=== PATIENT | male | born 1955 | race Two or more races ===

== ENCOUNTER 2022-07-23 12:45 | Emergency (ER) | payer OTHER ==
[2022-07-23 13:04] VITALS: BMI 25.0
[2022-07-23] MEDS ORDERED: PIPERACILLIN/TAZOB 2.25 GM 2.25 GM in DEXTROSE 5%-WATER - 50 ML IVPB ONE (14:23)
[2022-07-23 14:51] LABS: BASO % 0.6 % (0-2.0); EOS % 3.1 % (0-4.5); LYMPH % 33.8 % (8-40); MCH 34.1 pg (25.7-33.7); MCHC 32.3 g/dl (32.0-35.9); MEAN CELL VOLUME 105.5 fl (80-96); MEAN PLT VOLUME 13.1 fl (7.5-11.1); NEUT % 55.5 % (42.8-82.8); PLATELET COUNT 91 10^3/uL (134-434); RBC 3.22 M/mm3 (4.00-5.60); RDW 17.5 % (11.9-15.9); WHITE BLOOD COUNT 5.5 K/mm3 (4.0-10.0)
[2022-07-23 15:04] LABS: CHLORIDE 101 mmol/L (98-107); SODIUM 135 mmol/L (136-145)
[2022-07-23 15:06] LABS: ALBUMIN 2.9 g/dl (3.4-5.0); BLOOD UREA NITROGEN 56.2 mg/dL (7-18); CALCIUM 8.1 mg/dL (8.5-10.1); CO2 27 mmol/L (21-32)
[2022-07-23 15:09] LABS: CREATININE 6.4 mg/dL (0.55-1.3); SGPT/ALT 70 U/L (13-61)
[2022-07-23 15:10] LABS: SGOT/AST 118 U/L (15-37)
[2022-07-23 15:11] LABS: BILIRUBIN,TOTAL 0.5 mg/dL (0.2-1); TOT PROT 7.8 g/dl (6.4-8.2)
[2022-07-23 15:12] LABS: ALK PHOS 649 U/L (45-117); ANISOCYTOSIS 1+; MACROCYTOSIS 1+
[2022-07-23 15:24] LABS: ANION GAP 8 MMOL/L (8-16); GLUCOSE,RANDOM 299 mg/dL (74-106)
[2022-07-23] MEDS ORDERED: PIPERACILLIN/TAZOB 2.25 GM 2.25 GM/50 ML BAG IVPB ONE (15:52)
[2022-07-23] MEDS ORDERED: SODIUM ZIRCONIUM CYCLOSILICATE (LOKELMA) 5 GM PACKET PO SCH (16:15)
[2022-07-23 17:58] VITALS: BP 158/78
[2022-07-23 18:19] LABS: CALCIUM 8.3 mg/dL (8.5-10.1)
[2022-07-23 18:20] LABS: BLOOD UREA NITROGEN 61.5 mg/dL (7-18)
[2022-07-23] MEDS ORDERED: SODIUM ZIRCONIUM CYCLOSILICATE (LOKELMA) 5 GM PACKET ONE (18:22)
[2022-07-23 18:23] LABS: CREATININE 6.4 mg/dL (0.55-1.3)
[2022-07-23] MEDS ORDERED: ACETAMINOPHEN 325 MG TABLET (FP) PO ONE (20:17)
[2022-07-23] MEDS ORDERED: ACETAMINOPHEN 325 MG TABLET (FP) ONE (20:17)
[2022-07-24 00:50] VITALS: PULSE 69; RESP 18; TEMP 98.8
== END 2022-07-24 00:50 | disposition short-term general hospital (02) ==
LOC: JER 12:45 → EDSEX 12:45 → JER 07-24 00:50
DX: H60.22 Malignant otitis externa, left ear (principal); R73.9 Hyperglycemia, unspecified
CPT/HCPCS: 36415; 70450-TC; 76937; 80048; 80053; 85025; 85651; 86140; 87040; 93005; 93010; 99285-25; C9803-CS; U0003; U0005

== ENCOUNTER 2022-08-06 20:20 | Observation (INO) | payer OTHER ==
[2022-08-06 20:30] VITALS: BMI 21.6
[2022-08-06 23:32] LABS: BASO % 0.1 % (0-2.0); EOS % 0.1 % (0-4.5); HEMATOCRIT 36.2 % (35.4-49); HEMOGLOBIN 11.8 GM/dL (11.7-16.9); LYMPH % 6.5 % (8-40); MCH 34.4 pg (25.7-33.7); MCHC 32.5 g/dl (32.0-35.9); MEAN CELL VOLUME 105.6 fl (80-96); MEAN PLT VOLUME 12.4 fl (7.5-11.1); MONO % 0.9 % (3.8-10.2); NEUT % 92.4 % (42.8-82.8); PLATELET COUNT 90 10^3/uL (134-434); RBC 3.42 M/mm3 (4.00-5.60); RDW 16.7 % (11.9-15.9); WHITE BLOOD COUNT 7.8 K/mm3 (4.0-10.0)
[2022-08-06 23:39] LABS: INR 0.98 (0.83-1.09); PROTHROMBIN TIME (PATIENT) 11.3 SEC (9.7-13.0)
[2022-08-06 23:42] LABS: ACTIVATED PTT 33.6 SECONDS (25.2-36.5)
[2022-08-06 23:55] LABS: ALBUMIN 3.5 g/dl (3.4-5.0); BLOOD UREA NITROGEN 15.2 mg/dL (7-18); CALCIUM 8.4 mg/dL (8.5-10.1); MAGNESIUM 2.2 mg/dL (1.8-2.4)
[2022-08-06 23:58] LABS: CREATININE 3.2 mg/dL (0.55-1.3)
[2022-08-06 23:59] LABS: PHOSPHOROUS 4.5 mg/dL (2.5-4.9)
[2022-08-07] LABS: BILIRUBIN,TOTAL 0.6 mg/dL (0.2-1); TOT PROT 8.8 g/dl (6.4-8.2)
[2022-08-07 00:01] LABS: ANISOCYTOSIS 2+; MACROCYTOSIS 0
[2022-08-07 00:04] LABS: N-TERMINAL BNP 6826.4 pg/ml (5-125)
[2022-08-07] MEDS ORDERED: DOCUSATE SODIUM 100 MG CAPSULE (FP) PO PRN (01:03)
[2022-08-07] MEDS ORDERED: ACETAMINOPHEN 325 MG TABLET (FP) PO PRN (01:03)
[2022-08-07] MEDS ORDERED: SERTRALINE HCL 50 MG TABLET (FP) ONE (10:19)
[2022-08-07] MEDS ORDERED: amLODIPine BESYLATE 10 MG TABLET (FP) ONE (10:19)
[2022-08-07] MEDS ORDERED: MULTIVITAMINS (DAILY MVI) TABLET (FP) ONE (10:19)
[2022-08-07] MEDS ORDERED: hydrALAZINE HCL 50 MG TABLET (FP) ONE ×2 (10:19→21:35)
[2022-08-07] MEDS ORDERED: GABAPENTIN 300 MG CAPSULE ONE ×2 (10:19→21:34)
[2022-08-07] MEDS ORDERED: cloNIDine HCL 0.1 MG TABLET ONE ×2 (10:19→21:33)
[2022-08-07] MEDS: amLODIPine BESYLATE 10 MG TABLET (FP) PO SCH (11:31)
[2022-08-07] MEDS: SERTRALINE HCL 50 MG TABLET (FP) PO SCH (11:31)
[2022-08-07] MEDS: GABAPENTIN 300 MG CAPSULE PO SCH ×2 (11:31→21:48)
[2022-08-07] MEDS: hydrALAZINE HCL 10 MG TABLET PO SCH ×2 (11:31→21:48)
[2022-08-07] MEDS: cloNIDine HCL 0.1 MG TABLET PO SCH ×2 (11:31→21:48)
[2022-08-07] MEDS: MULTIVITAMINS (DAILY MVI) TABLET (FP) PO SCH (11:31)
[2022-08-07] MEDS: INSULIN SLIDING SCALE (NOVOLOG) 1 VIAL SQ SCH ×4 (11:32→22:06)
[2022-08-07] MEDS: SEVELAMER CARBONATE 800 MG TAB (FP) PO SCH ×2 (12:46→18:24)
[2022-08-07] MEDS ORDERED: ATORVASTATIN CA 40 MG TABLET (FP) ONE (21:34)
[2022-08-07] MEDS ORDERED: MELATONIN 5 MG TABLETS ONE (21:34)
[2022-08-07] MEDS ORDERED: MIRTAZAPINE 15 MG TABLET (FP) ONE (21:34)
[2022-08-07] MEDS: MIRTAZAPINE 30 MG TABLET PO SCH (21:48)
[2022-08-07] MEDS: ATORVASTATIN CA 40 MG TABLET (FP) PO SCH (21:48)
[2022-08-07] MEDS ORDERED: MELATONIN 5 MG TABLETS PO SCH (22:00)
[2022-08-07 23:23] VITALS: RESP 18
[2022-08-08 07:17] LABS: BASO % 0.3 % (0-2.0); LYMPH % 41.6 % (8-40); MCH 34.6 pg (25.7-33.7); MCHC 32.1 g/dl (32.0-35.9); MEAN CELL VOLUME 107.8 fl (80-96); MEAN PLT VOLUME 11.6 fl (7.5-11.1); MONO % 6.2 % (3.8-10.2); NEUT % 49.9 % (42.8-82.8); PLATELET COUNT 64 10^3/uL (134-434); RBC 2.59 M/mm3 (4.00-5.60); RDW 17.2 % (11.9-15.9); WHITE BLOOD COUNT 5.7 K/mm3 (4.0-10.0)
[2022-08-08 07:33] LABS: CALCIUM 7.9 mg/dL (8.5-10.1)
[2022-08-08 07:34] LABS: ALBUMIN 2.9 g/dl (3.4-5.0)
[2022-08-08 07:37] LABS: CREATININE 6.2 mg/dL (0.55-1.3)
[2022-08-08 07:38] LABS: BILIRUBIN,TOTAL 0.4 mg/dL (0.2-1); TOT PROT 6.8 g/dl (6.4-8.2)
[2022-08-08 07:53] LABS: BLOOD UREA NITROGEN 54.7 mg/dL (7-18)
[2022-08-08] MEDS: INSULIN SLIDING SCALE (NOVOLOG) 1 VIAL SQ SCH ×3 (07:58→16:32)
[2022-08-08] MEDS ORDERED: SODIUM CHLORIDE 250 ML IV PRN (08:40)
[2022-08-08] MEDS ORDERED: HEPARIN NA (PORCINE) 5,000 UNITS/ML 1ML VIAL IVPUSH ONE (08:45)
[2022-08-08 10:00] LABS: EPI CELLS 10 /uL (0-25.1); HYALINE CASTS 1 /uL (0-3.1); PH,URINE 8.5 (5.0-8.0); URINE APPEARANCE CLEAR; URINE BACTERIA 42 /uL (0-1359); URINE BILIRUBIN NEGATIVE (NEGATIVE); URINE COLOR YELLOW; URINE GLUCOSE (UA) TRACE (NEGATIVE); URINE KETONE NEGATIVE (NEGATIVE); URINE LEUK ESTERASE NEGATIVE (NEGATIVE); URINE NITRITE NEGATIVE (NEGATIVE); URINE PROTEIN 3+ (NEGATIVE); URINE RBC 7 /uL (0-23.9); URINE UROBILINOGEN 0.2 mg/dL (0.2-1.0); URINE WBC 6 /uL (0-25.8)
[2022-08-08 12:08] LABS: CALCIUM 8.2 mg/dL (8.5-10.1)
[2022-08-08] MEDS: GABAPENTIN 300 MG CAPSULE PO SCH (12:29)
[2022-08-08] MEDS: hydrALAZINE HCL 10 MG TABLET PO SCH (12:29)
[2022-08-08] MEDS: cloNIDine HCL 0.1 MG TABLET PO SCH (12:29)
[2022-08-08] MEDS: SEVELAMER CARBONATE 800 MG TAB (FP) PO SCH ×3 (12:29→16:32)
[2022-08-08] MEDS ORDERED: MULTIVITAMINS (DAILY MVI) TABLET (FP) ONE (12:43)
[2022-08-08] MEDS ORDERED: amLODIPine BESYLATE 10 MG TABLET (FP) ONE (12:43)
[2022-08-08 12:44] LABS: BILIRUBIN,TOTAL 0.5 mg/dL (0.2-1); BLOOD UREA NITROGEN 59.1 mg/dL (7-18); CREATININE 6.4 mg/dL (0.55-1.3); TOT PROT 7.2 g/dl (6.4-8.2)
[2022-08-08] MEDS ORDERED: SERTRALINE HCL 50 MG TABLET (FP) ONE (12:44)
[2022-08-08] MEDS: SERTRALINE HCL 50 MG TABLET (FP) PO SCH (13:10)
[2022-08-08] MEDS: amLODIPine BESYLATE 10 MG TABLET (FP) PO SCH (13:10)
[2022-08-08] MEDS: MULTIVITAMINS (DAILY MVI) TABLET (FP) PO SCH (13:10)
[2022-08-08 21:53] VITALS: PULSE 80; TEMP 98
[2022-08-09 03:06] VITALS: BP 182/95
[2022-08-09] MEDS: cloNIDine HCL 0.1 MG TABLET PO SCH (03:06)
[2022-08-09] MEDS: ATORVASTATIN CA 40 MG TABLET (FP) PO SCH (03:06)
[2022-08-09] MEDS: hydrALAZINE HCL 10 MG TABLET PO SCH (03:06)
[2022-08-09] MEDS ORDERED: cloNIDine HCL 0.1 MG TABLET ONE (03:07)
[2022-08-09] MEDS ORDERED: hydrALAZINE HCL 50 MG TABLET (FP) ONE (03:07)
[2022-08-09] MEDS: GABAPENTIN 300 MG CAPSULE PO SCH (03:22)
[2022-08-09] MEDS: MIRTAZAPINE 30 MG TABLET PO SCH (03:22)
[2022-08-09] MEDS ORDERED: MIRTAZAPINE 15 MG TABLET (FP) ONE (03:23)
[2022-08-09] MEDS ORDERED: GABAPENTIN 300 MG CAPSULE ONE (03:23)
[2022-08-09] MEDS: INSULIN SLIDING SCALE (NOVOLOG) 1 VIAL SQ SCH (03:31)
== END 2022-08-09 03:54 ==
LOC: JER 20:20 → JERBED 08-07 00:22
PROVIDERS: ADMIT Family Medicine; ATTEND Family Medicine
PROC: 3E033GC Introduction of Other Therapeutic Substance into Peripheral Vein, Percutaneous Approach (ICD-10-PCS; principal; 2022-08-07)
DX: R55 Syncope and collapse (principal); E11.22 Type 2 diabetes mellitus with diabetic chronic kidney disease; I12.0 Hypertensive chronic kidney disease with stage 5 chronic kidney disease or end stage renal disease; N18.6 End stage renal disease; Z99.2 Dependence on renal dialysis; B19.20 Unspecified viral hepatitis C without hepatic coma; R05.9 Cough, unspecified
CPT/HCPCS: 0241U-QW; 36415; 70450-TC; 71045-TC-FY; 72125-TC; 80048; 80053; 81003; 82550; 82962; 83735; 83880; 84100; 84443; 84484; 85025; 85610; 85730; 86803; 87086; 87186; 87340; 87522; 93005; 93010; 93306-TC; 96374; 99285-25; G0378; J1644

== ENCOUNTER 2024-02-09 03:51 | Day surgery (SDC) | payer OTHER ==
[2024-02-08 09:09] VITALS: BMI 24.2
[~2024-02-09 03:51] MED LIST: ACETAMINOPHEN 325 MG TABLET (FP) PO PRN
[2024-02-09] MEDS ORDERED: PHENYLEPHRINE/KETOROLAC 4 ML VIAL IO ONE (07:16)
[2024-02-09] MEDS ORDERED: TETRACAINE 0.5% OPHTH SOLN 2 ML BOTTLE ONE (07:16)
[2024-02-09] MEDS ORDERED: LIDOCAINE HCL/PF 1% SDV 5ML VIAL ONE (07:16)
[2024-02-09] MEDS ORDERED: BSS (NA/CA/MG/K) BALANCED SALT SOLUTION OPHTH SOLN 15 ML BOTTLE ONE (07:17)
[2024-02-09] MEDS ORDERED: POVIDONE-IODINE 5% OPHTHALMIC PREP 30 ML SOLUTION ONE (07:17)
[2024-02-09] MEDS: TETRACAINE 0.5% OPHTH SOLN 2 ML BOTTLE OS ONE ×2 (11:05→12:20)
[2024-02-09] MEDS: LIDOCAINE HCL 1% PRESERVATIVE FREE - 30ML VIAL IO ONE ×2 (11:06→12:30)
[2024-02-09] MEDS: CHONDROITIN SU A/HYALUR SOD 1 KIT IO ONE ×2 (11:06→12:35)
[2024-02-09] MEDS: BSS (NA/CA/MG/K) BALANCED SALT SOLUTION OPHTH SOLN 15 ML BOTTLE OS ONE ×2 (11:06→12:29)
[2024-02-09] MEDS: POVIDONE-IODINE 5% OPHTHALMIC PREP 30 ML SOLUTION OS ONE ×2 (11:06→12:22)
[2024-02-09] MEDS: PHENYLEPHRINE/KETOROLAC 4 ML VIAL IO ONE ×2 (11:07→12:38)
[2024-02-09] MEDS ORDERED: KETOROLAC TROMETHAMINE 0.5% EYE DROP 1 DROP DROPS ONE (11:28)
[2024-02-09] MEDS ORDERED: CYCLOPENTOLATE HCL 1% OPHTH SOLN 2 ML BOTTLE ONE (11:28)
[2024-02-09] MEDS ORDERED: TROPICAMIDE 1% OPHTH SOLN 15 ML BOTTLE ONE (11:28)
[2024-02-09] MEDS ORDERED: OFLOXACIN 0.3% OPHTHALMIC SOLUTION 5 ML BOTTLE ONE (11:29)
[2024-02-09] MEDS: CYCLOPENTOLATE HCL 1% OPHTH SOLN 2 ML BOTTLE OP SCH (11:34)
[2024-02-09 11:35] VITALS: RESP 18
[2024-02-09] MEDS: KETOROLAC TROMETHAMINE 0.5% EYE DROP 1 DROP DROPS OP SCH (11:35)
[2024-02-09] MEDS: PHENYLEPHRINE 2.5% OPHTH SOLN 15 ML BOTTLE OP SCH (11:35)
[2024-02-09] MEDS: TROPICAMIDE 1% OPHTH SOLN 15 ML BOTTLE OP SCH (11:35)
[2024-02-09] MEDS: OFLOXACIN 0.3% OPHTHALMIC SOLUTION 5 ML BOTTLE OP SCH (11:35)
[2024-02-09] MEDS ORDERED: MIDAZOLAM HCL 2 MG/2 ML SINGLE DOSE VIAL ONE (12:15)
[2024-02-09 16:34] VITALS: BP 155/68; PULSE 72; TEMP 97.5
== END 2024-02-09 13:51 | disposition home or self-care (01) ==
LOC: JASU-SURG 03:51
PROVIDERS: ATTEND Ophthalmology
PROC: 08RK3JZ Replacement of Left Lens with Synthetic Substitute, Percutaneous Approach (ICD-10-PCS; principal; 2024-02-09 12:00)
DX: H26.9 Unspecified cataract (principal)
CPT/HCPCS: 82962; J1097; V2632

== ENCOUNTER 2024-03-02 04:33 | Day surgery (SDC) | payer OTHER ==
[2024-02-24 11:14] VITALS: BMI 24.1
[2024-03-02] MEDS ORDERED: TETRACAINE 0.5% OPHTH SOLN 2 ML BOTTLE ONE (07:33)
[2024-03-02] MEDS ORDERED: BUPIVACAINE HCL/PF 0.75% 10 ML VIAL ONE (07:33)
[2024-03-02] MEDS ORDERED: LIDOCAINE HCL/PF 1% SDV 5ML VIAL ONE (07:33)
[2024-03-02] MEDS ORDERED: POVIDONE-IODINE 5% OPHTHALMIC PREP 30 ML SOLUTION ONE (07:33)
[2024-03-02] MEDS ORDERED: BSS (NA/CA/MG/K) BALANCED SALT SOLUTION OPHTH SOLN 15 ML BOTTLE ONE (07:33)
[2024-03-02] MEDS ORDERED: PHENYLEPHRINE/KETOROLAC 4 ML VIAL IO ONE (07:33)
[2024-03-02] MEDS ORDERED: LIDOCAINE HCL/PF 2% SDV 5ML VIAL ONE (07:33)
[2024-03-02] MEDS ORDERED: ACETAMINOPHEN 325 MG TABLET (FP) PO PRN (07:40)
[2024-03-02] MEDS ORDERED: TROPICAMIDE 1% OPHTH SOLN 15 ML BOTTLE OP SCH (07:45)
[2024-03-02] MEDS ORDERED: CYCLOPENTOLATE HCL 1% OPHTH SOLN 2 ML BOTTLE OP SCH (07:45)
[2024-03-02] MEDS ORDERED: OFLOXACIN 0.3% OPHTHALMIC SOLUTION 5 ML BOTTLE OP SCH (07:45)
[2024-03-02] MEDS ORDERED: PHENYLEPHRINE 2.5% OPHTH SOLN 15 ML BOTTLE OP SCH (07:45)
[2024-03-02] MEDS ORDERED: KETOROLAC TROMETHAMINE 0.5% EYE DROP 1 DROP DROPS OP SCH (07:45)
[2024-03-02] MEDS ORDERED: PHENYLEPHRINE 2.5% OPTHALMIC DROP 2ML BOTTLE ONE (10:36)
[2024-03-02] MEDS ORDERED: TROPICAMIDE 1% OPHTH SOLN 15 ML BOTTLE ONE (10:37)
[2024-03-02] MEDS ORDERED: CYCLOPENTOLATE HCL 1% OPHTH SOLN 2 ML BOTTLE ONE (10:37)
[2024-03-02] MEDS ORDERED: KETOROLAC TROMETHAMINE 0.5% EYE DROP 1 DROP DROPS ONE (10:37)
[2024-03-02] MEDS ORDERED: OFLOXACIN 0.3% OPHTHALMIC SOLUTION 5 ML BOTTLE ONE (10:37)
[2024-03-02] MEDS ORDERED: MIDAZOLAM HCL 2 MG/2 ML SINGLE DOSE VIAL ONE (12:00)
[2024-03-02] MEDS: TETRACAINE 0.5% OPHTH SOLN 2 ML BOTTLE OD ONE (12:05)
[2024-03-02] MEDS: POVIDONE-IODINE 5% OPHTHALMIC PREP 30 ML SOLUTION OD ONE (12:06)
[2024-03-02] MEDS: LEVOBUNOLOL HCL 0.5% OD ONE (12:06)
[2024-03-02] MEDS: LIDOCAINE HCL 1% PRESERVATIVE FREE - 30ML VIAL IO ONE (12:11)
[2024-03-02] MEDS: CHONDROITIN SU A/HYALUR SOD 1 KIT IO ONE (12:12)
[2024-03-02] MEDS: EPINEPHrine 1:1,000 1,000 MCG/ML ML SQ ONE (12:15)
[2024-03-02] MEDS: PHENYLEPHRINE/KETOROLAC 4 ML VIAL IO ONE (12:15)
[2024-03-02 13:00] VITALS: RESP 18
[2024-03-02 13:30] VITALS: BP 148/65; PULSE 70; TEMP 97.7
== END 2024-03-02 13:40 | disposition home or self-care (01) ==
LOC: JASU-SURG 04:33
PROVIDERS: ATTEND Ophthalmology
PROC: 08RJ3JZ Replacement of Right Lens with Synthetic Substitute, Percutaneous Approach (ICD-10-PCS; principal; 2024-03-02 12:00)
DX: H26.9 Unspecified cataract (principal)
CPT/HCPCS: 82962; J1097; V2632